=== PATIENT | male | born 1970 | race Two or more races ===

== ENCOUNTER 2024-07-29 10:51 | Emergency (ER) | payer OTHER ==
[~2024-07-29] VITALS: Ht 170.2 cm; Wt 64.9 kg
[2024-07-29] MEDS ORDERED: JARDIANCE25 MG PO (12:16)
[2024-07-29] MEDS ORDERED: METFORMIN HCL1000 MG PO (12:16)
[2024-07-29] MEDS ORDERED: LEXAPRO5 MG PO (12:17)
[2024-07-29] MEDS ORDERED: CRESTOR40 MG PO (12:17)
[2024-07-29] MEDS ORDERED: CEFTRIAXONE SODIUM 2,000 MG VIAL IV ONE (13:00)
[2024-07-29 14:00] LABS: HEMATOCRIT 46.6 % (39.0-48.0); HEMOGLOBIN 16.5 g/dL (13-16.00); MEAN CELL VOLUME 91.1 fL (80.0-100.00); MEAN CORPUSCULAR HEMOGLOBIN 32.3 pg (27.00-32.0); MEAN CORPUSCULAR HGB CONC 35.5 g/dl (32.0-36.0); PLATELET COUNT 195 K/uL (150-450); RED BLOOD COUNT 5.12 M/uL (4.00-6.00); RED CELL DISTRIBUTION WIDTH 13.4 % (11.5-14.5)
== END 2024-07-29 15:25 | disposition home or self-care (01) ==
LOC: ER 10:54
PROVIDERS: General Practice
DX: Z48.02 Encounter for removal of sutures (principal); T81.49XA Infection following a procedure, other surgical site, initial encounter; B99.9 Unspecified infectious disease; E11.9 Type 2 diabetes mellitus without complications; Z79.84 Long term (current) use of oral hypoglycemic drugs; Z88.8 Allergy status to other drugs, medicaments and biological substances